=== PATIENT | female | born 1990 | race Caucasian/White ===

== ENCOUNTER 2016-09-17 11:38 | Emergency (ER) | payer BC, OTHER ==
[~2016-09-17] VITALS: Ht 160 cm; Wt 71.9 kg
[~2016-09-17 11:38] MED LIST: ETON68IM3 IMPLANT
[2016-09-17] MEDS ORDERED: ONDANSETRON 2MG/ML, 2ML IVPush ONE (13:00)
[2016-09-17] MEDS ORDERED: MORPHINE SULFATE 4 MG/ML, 1ML IVPush PRN (13:00)
[2016-09-17] MEDS ORDERED: SODIUM CHLORIDE 0.9% 1,000ML IVBOLUS ONE (13:00)
[2016-09-17] MEDS ORDERED: FAMOTIDINE 20 MG/2 ML IVP ONE (13:00)
[2016-09-17] MEDS ORDERED: SODIUM CHLORIDE FLUSH 10ML SYR IVF ONE (13:00)
[2016-09-17] MEDS ORDERED: FAMOTIDINE 20 MG/2 ML ONE (13:01)
[2016-09-17] MEDS ORDERED: ONDANSETRON 2MG/ML, 2ML ONE (13:01)
[2016-09-17 13:24] LABS: ASPARTATE AMINO TRANSFERASE 18 U/L (15-37); BLOOD UREA NITROGEN 11 mg/dL (7-18)
[2016-09-17] MEDS ORDERED: OMNIPAQUE 350 MG/ML, 100ML BOTTLE ONE (13:56)
[2016-09-17 14:50] VITALS: BP 120/76
== END 2016-09-17 15:03 | disposition home or self-care (01) ==
LOC: ED 14:48
DX: K59.00 Constipation, unspecified (principal); R31.9 Hematuria, unspecified; Z90.49 Acquired absence of other specified parts of digestive tract
CPT/HCPCS: 36415; 74177; 80053; 81001; 83690; 84703; 85025; 87086; 96361; 96374; 96375; 99285; J2405; J7030; Q9967; S0028